=== PATIENT | female | born 1960 | race Two or more races ===

== ENCOUNTER 2018-08-08 17:13 | Emergency (ER) | payer OTHER ==
[~2018-08-08] VITALS: Ht 162.6 cm; Wt 65.8 kg
[2018-08-08 17:13] VITALS: BP 109/72
[2018-08-08] MEDS ORDERED: ACETAMINOPHEN ES 500 MG TABLET ONE (17:40)
[2018-08-08] MEDS ORDERED: LIDOCAINE 1%-EPI 1:100,000 20 ML VIAL ONE (17:40)
[2018-08-08] MEDS ORDERED: ACETAMINOPHEN 325 MG TABLET PO ONE (18:00)
[2018-08-08] MEDS ORDERED: SULFAMETH/TRIMETH 800/160 MG 1 UDTAB TABLET PO ONE ×2 (18:00→18:06)
[2018-08-08] MEDS ORDERED: CEPHALEXIN MONOHYDRATE 500 MG CAPSULE PO ONE ×2 (18:00→18:06)
[2018-08-08] MEDS ORDERED: LIDOCAINE 1%-EPI 1:100,000 20 ML VIAL TP ONE (18:30)
== END 2018-08-08 18:31 | disposition home or self-care (01) ==
LOC: ER 17:15
DX: L02.416 Cutaneous abscess of left lower limb (principal)
CPT/HCPCS: 10060; 87070; 87077; 99284; A4606; A6403; A6407; J3490

== ENCOUNTER 2018-08-13 20:30 | Emergency (ER) | payer MEDICAID, OTHER ==
[~2018-08-13] VITALS: Ht 162.6 cm; Wt 63.5 kg
--- NOTE | 2018-08-13 21:06 | NUR ---
BIBSELF C/O L UPPER EXTREMITY TINGLING AND L EYE PRESSURE X1 DAY. PT STATES +HEADACHE AND DIZZINESS. PT AMBULATED WITH STEADY GAIT TO ER BED 3. FACIAL SYMETRY NOTED TO BE EVEN W/ A CLEAR SPEECH PATTERN. PT ABLE TO MOVE ALL EXTREMITIES WITH NO DIFFICULTY. NO EXTREMITY WEAKNESS NOTED AT THIS TIME. PT PLACED ON ORANGE GROWER AND POX. NO S/S OF ACUTE DISTRESS NOTED. RR EVEN AND UNLABORED. AWAITING MD FOR EVAL. WILL CONTINUE TO MONITOR PT.
--- NOTE | 2018-08-13 21:18 | NUR ---
PT STATES HER S/S BEGAN LAST NIGHT AROUND 0. RICHMOND NELSON MADE AWARE
[2018-08-13] MEDS ORDERED: ONDANSETRON HCL/PF 4 MG/2 ML VIAL ONE (21:20)
[2018-08-13] MEDS ORDERED: IV NS 0.9% 1,000 ML BAG IV ONE (21:30)
[2018-08-13] MEDS ORDERED: ONDANSETRON HCL/PF 4 MG/2 ML VIAL IVP ONE (21:30)
--- NOTE | 2018-08-13 21:30 | NUR ---
PT UNABLE TO PROVIDE URINE SAMPLE AT THIS TIME.
[2018-08-13 21:43] LABS: BASOPHILS # (AUTO) 0.1 /CMM (0.0-0.2); BASOPHILS % (AUTO) 0.9 % (0.0-2.0); EOSINOPHILS % (AUTO) 5.4 % (0.0-6.0); HEMATOCRIT 39 % (33-45); HEMOGLOBIN 12.9 g/dL (11.5-14.8); LYMPHOCYTES # (AUTO) 1.8 /CMM (0.8-4.8); LYMPHOCYTES % (AUTO) 28.9 % (20.0-44.0); MEAN CORPUSCULAR HGB CONC 33 g/dl (31.0-36.0); MEAN CORPUSCULAR VOLUME 96 fL (82-100); MONOCYTES # (AUTO) 0.6 /CMM (0.1-1.30); MONOCYTES % (AUTO) 9.7 % (2.0-12.0); NEUTROPHILS # (AUTO) 3.4 /CMM (1.8-8.9); NEUTROPHILS % (AUTO) 55.1 % (43.0-81.0); PLATELET COUNT (AUTO) 362 /CMM (150-450); RED BLOOD CELL COUNT(AUTO) 4.02 MIL/uL (4.0-5.2); WHITE BLOOD COUNT (AUTO) 6.1 K/uL (4.3-11.0)
[2018-08-13 21:56] LABS: CALCIUM, SERUM 9.4 mg/dL (8.5-10.1); CARBON DIOXIDE 25 mmol/L (21-32); CHLORIDE 103 mmol/L (98-107); GLUCOSE 75 mg/dL (74-106); POTASSIUM 3.7 mmol/L (3.5-5.1); SODIUM SERUM 139 mmol/L (136-145); UREA NITROGEN, BLOOD 14 mg/dL (7-18)
[2018-08-13 22:02] LABS: ALANINE AMINOTRANSFERASE 21 U/L (12-78); ALBUMIN 3.8 g/dL (3.4-5.0); ALKALINE PHOSPHATASE 108 U/L (46-116); ASPARTATE AMINOTRANSFERASE 17 U/L (15-37); BILIRUBIN,DIRECT 0.1 mg/dL (0.0-0.2); BILIRUBIN,TOTAL 0.3 mg/dL (0.2-1.0)
--- NOTE | 2018-08-13 22:58 | NUR ---
PT TO RESTROOM TO GIVE URINE SAMPLE.
--- NOTE | 2018-08-13 23:01 | NUR ---
URINE SAMPLE COLLECTED AND SENT TO LAB
[2018-08-13 23:26] LABS: APPEARANCE,URINE CLEAR (CLEAR); BILIRUBIN,URINE NEGATIVE (NEGATIVE); BLOOD, URINE TRACE-INTA Ery/uL (NEGATIVE); COLOR,URINE YELLOW (YELLOW); KETONES,URINE NEGATIVE (NEGATIVE); LEUKOCYTE ESTERASE ,URINE 3+ (NEGATIVE); NITRITE, URINE NEGATIVE (NEGATIVE); PH,URINE 6.5 (5.0-8.0); PROTEIN,URINE NEGATIVE (NEGATIVE); UGLUCOSE NEGATIVE (NEGATIVE); UROBILINOGEN,URINE 0.2 EU/dL (0.2)
[2018-08-13 23:40] LABS: BACTERIA,URINE Few /HPF (None Seen); SQUAMOUS EPITHELIAL CELL,UR Few /HPF (None Seen); WBC,URINE 81-100 /HPF (0-3)
--- NOTE | 2018-08-14 02:45 | NUR ---
Patient is resting comfortably in bed with eyes closed. Easily aroused. VSS
--- NOTE | 2018-08-14 06:02 | NUR ---
ACCEPTED AT [facility] [id number] RN REPORT [phone] AUTH FOR TRANSPORTATION [id number]
--- NOTE | 2018-08-14 06:09 | NUR ---
Sylvia called for ALS transport. ETA [phone]. trip [id number]
--- NOTE | 2018-08-14 06:58 | NUR ---
TRIED GIVING REPORT TO SPRING GLEN YESIKA, WAS INFORMED TO CALL BACK AFTER 2004
--- NOTE | 2018-08-14 07:29 | NUR ---
TRIED GIVING REPORT TO RN AT [facility], WAS INFORMED NURSES ARE HAVING CHANGE OF SHIFT AND TO CALL BACK "IN 15-30 MINUTES"
--- NOTE | 2018-08-14 07:32 | NUR ---
REPORT GIVEN TO ARON SORIANO FOR [facility]ENT[facility].
--- NOTE | 2018-08-14 07:35 | NUR ---
RECEIVED REPORT FROM ARON HOFFMAN FOR [facility], PT IS AAOX3, NOT IN RESPIRATORY DISTRESS, WITH ONGOING IV FLUID NS, WILL CONTINUE TO MONITOR.
--- NOTE | 2018-08-14 07:50 | NUR ---
REPORT GIVEN TO ARON KOCH OF [facility] FOR [facility].
--- NOTE | 2018-08-14 10:14 | NUR ---
.REPORT GIVEN TO EMT FOR TRANSFER TO [facility]
[2018-08-14 10:15] VITALS: BP 98/61
== END 2018-08-14 10:20 | disposition short-term general hospital (02) ==
LOC: ER 20:39
DX: R20.2 Paresthesia of skin (principal)
CPT/HCPCS: 36415; 70450; 71045; 80048; 80076; 81001; 84484; 85025; 85378; 85730; 87086; 96374; 99285; A4606; J2405; J7030; 81000-TC